=== PATIENT | female | born 1985 | race Caucasian/White ===

== ENCOUNTER 2021-08-22 10:05 | Outpatient (REF) | payer BC, SELFPAY ==
[2021-08-22 11:31] LABS: Blood Urea Nitrogen 9 mg/dL (9-16); Calcium 10.3 mg/dL (8.4-10.2); Estimated Glomerular Filt Rate > 60; Glucose Random 96 mg/dL (60-115)
[2021-08-22 11:42] LABS: Anion Gap 10 (12-20); Carbon Dioxide 28 mmol/L (22-29); Chloride 107 mmol/L (96-108); Potassium 4.3 mmol/L (3.3-5.1); Sodium 141 mmol/L (135-145)
[2021-08-22 12:04] LABS: Syphilis Screen Nonreactive (Nonreactive)
[2021-08-22 12:12] LABS: Folate 10.6 ng/mL (> or = 4.0); Vitamin B12 325 pg/mL (200-900)
[2021-08-23 21:32] LABS: Lyme Abs Screen <0.90 index
[2021-08-25 18:56] LABS: Vitamin B1 <6 nmol/L (8-30)
[2021-08-27 05:16] LABS: IgA 90 mg/dL (47-310); IgG 543 mg/dL (600-1640); IgM 169 mg/dL (50-300)
== END 2021-08-22 10:06 | disposition home or self-care (01) ==
LOC: HO.LAB 10:05
PROVIDERS: Visit Provider Psychiatry & Neurology Neurology
DX: G62.9 Polyneuropathy, unspecified (principal)
CPT/HCPCS: 36415; 80048; 82607; 82746; 82784; 84425; 86334; 86617; 86618; 86780